=== PATIENT | female | born 1980 | race American Indian/Alaskan Native ===

== ENCOUNTER 2017-05-05 16:38 | Emergency (ER) | payer OTHER ==
[~2017-05-05] VITALS: Ht 172.7 cm; Wt 81.7 kg
--- OUTSIDE RECORDS SUMMARY | ~2017-05-05 | XMS | Clinical Summary ---
Demographics + + + | Address | [address] | | | [place] [address] | + + + | Home Phone | | + + + | Preferred Language | Unknown | + + + | Marital Status | Single | + + + | Scientology Affiliation | Unknown | + + + | Race | Unknown | + + + | Ethnic Group | Other Race | + + + Author + + + | Author | [facility] | + + + | Organization | [facility] | + + + | Address | Unknown | + + + | Phone | Unavailable | + + + Care Team Providers + +------+ + | Care Plasma Specialist Name | Role | Phone | + +------+ + PP | Unavailable | + +------+ + Source Comments KEIRY is fully live on both [facility] and [facility] In[facility] & [facility] Allergies Not on File Current Medications Not on file Active Problems Not on file Social History + +-------+ +--------+------+ | Tobacco Use | Types | Packs/Day | Years | Date | | | | | Used | | + +-------+ +--------+------+ | Never Assessed | | | | | + +-------+ +--------+------+ + + + | Sex Assigned at | Date Recorded | | | | + + + | Not on file | | + + + Plan of Treatment + + + + + | Health Maintenance | Due Date | Last Done | Comments | + + + + + | INFLUENZA VACCINE | | | | | (FLU SHOT) | 7 | | | + + + + + Results Not on filefrom Last 3 Months"
--- OUTSIDE RECORDS SUMMARY | ~2017-05-05 | XMS | Clinical Summary ---
Demographics + + + | Address | [address] | | | [place] [address] | + + + | Home Phone | | + + + | Preferred Language | Unknown | + + + | Marital Status | Single | + + + | Catholic Affiliation | Unknown | + + + | Race | Unknown | + + + | Ethnic Group | Other Race | + + + Author + + + | Author | [facility] | + + + | Organization | [facility] | + + + | Address | Unknown | + + + | Phone | Unavailable | + + + Care Team Providers + +------+ + | Care Accounting Associate Name | Role | Phone | + +------+ + PP | Unavailable | + +------+ + Source Comments KEIRY is fully live on both [facility] and [facility] InPatient.[facility] & [facility] Allergies Not on File Current Medications Not [...]
[~2017-05-05 16:38] MED LIST: ALLEGRA-D 12 HOU1 EA PO; ALPRAZOLAM0.5 MG PO; ALPRAZOLAM1 MG PO; AZITHROMYCIN250 MG PO; BACTRIM DS TAB1 EACH PO; CALCIUM CARBON500 MG PO; COMPLETE A12.5 MG/5 PO; DOCUSATE SODIU100 MG PO; DOXYCYCLINE HY100 MG PO; FOLBIC RF TABL1 EACH PO; HYDROCODON-ACE1 EA10 PO; IBUPROFEN600 MG PO; ISENTRESS400 MG PO; LACTULOSE10 GM/151 PO; LIDODERM700 MG TOP; MEDI-PATCH WIT1 EACH TOP; MILK OF MA400 MG/5 M PO; NICORETTE2 MG PO; NORCO 5-325 TA1 EACH PO; PROAIR HFA8.5 GM INH; RISPERDAL1 MG PO; ROBAXIN500 MG PO; SEROQUEL100 MG PO; SIMETHICONE80 MG PO; TERBINAFINE HC250 MG PO; TRAZODONE HCL50 MG PO; TRIAMCINOLONE A15 GM TOP; TRUVADA 200 MG1 EACH PO; TYLENOL325 MG PO; VALGANCICLOVIR450 MG PO; VENTOLIN HFA18 GM INH; VISTARIL50 MG PO; VITAMIN B-121000 MC1 PO; ZITHROMAX600 MG PO
[2017-05-05] MEDS ORDERED: XANAX0.5 MG PO (17:17)
== END 2017-05-05 17:53 | disposition home or self-care (01) ==
LOC: ED 16:38
DX: F41.0 Panic disorder [episodic paroxysmal anxiety] (principal); F32.9 Major depressive disorder, single episode, unspecified; F43.10 Post-traumatic stress disorder, unspecified; Z86.73 Personal history of transient ischemic attack (TIA), and cerebral infarction without residual deficits; F17.200 Nicotine dependence, unspecified, uncomplicated; Z79.899 Other long term (current) drug therapy
CPT/HCPCS: 96374; 99283; J2060

== ENCOUNTER 2017-12-15 13:25 | Emergency (ER) | payer OTHER ==
[~2017-12-15] VITALS: Ht 172.7 cm; Wt 77.1 kg
--- OUTSIDE RECORDS SUMMARY | ~2017-12-15 | XMS | Clinical Summary ---
Demographics + + + | Address | [address] | | | [place] [address] | + + + | Home Phone | | + + + | Preferred Language | Unknown | + + + | Marital Status | Single | + + + | Yarsanism Affiliation | Unknown | + + + | Race | Unknown | + + + | Ethnic Group | Other Race | + + + Author + + + | Author | [facility] | + + + | Organization | [facility] | + + + | Address | Unknown | + + + | Phone | Unavailable | + + + Care Team Providers + +------+ + | Care Stock Associate Name | Role | Phone | + +------+ + PP | Unavailable | + +------+ + Source Comments KEIRY is fully live on both [facility] and [facility] InPatient.[facility] & [facility] Allergies Not on File Current Medications Not [...] | | | | (FLU SHOT) | 8 | | | + + + + + Results Not on filefrom Last 3 Months Insurance + +--------+ +--------+ + + | Payer | Benefi | Subscriber | Type | Phone | Address | | | t Plan | ID | | | | | | / | | | | | | | Group | | | | | + +--------+ +--------+ + + | [place] | OHP | xxxxxxxx | Medica | [phone] | [address] [address] | | | PLUS | | id | [phone] | [place] [address] | | | OPEN | | | | | | | CARD | | | | | + +--------+ +--------+ + + + +--------+ +--------+ + + | Guarantor Name | Accoun | Relation to | Date | Phone | Billing Address | | | t Type | Patient | of | | | | | | | | | | + +--------+ +--------+ + + | ZOIE CRAIG | Person | Self | [birth year] | Home: | [address] | | | al/Fam | | 1980 | [phone] | [place] | | | [place] | | | 1 | [phone] | + +--------+ +--------+ + +"
--- OUTSIDE RECORDS SUMMARY | ~2017-12-15 | XMS | Clinical Summary ---
Demographics + + + | Address | [address] | | | [place] [address] | + + + | Home Phone | | + + + | Preferred Language | Unknown | + + + | Marital Status | Single | + + + | Hinduism Affiliation | Unknown | + + + | Race | Unknown | + + + | Ethnic Group | Unknown | + + + Author + + + | Author | [facility] | | | and [place] | + + + | Organization | [facility] | | | and [place] | + + + | Address | Unknown | + + + | Phone | Unavailable | + + + Support + + + + + | Name | Relationship | Address | Phone | + + + + + | Yas Craig | ECON | [place] | | | | | [phone] | | + + + + + Care Team Providers + +------+ + | Care Dcs Engineer Name | Role | Phone | + [...] Date | + + + | Sepsis ([facility]) | 07/25/2015 | + + + | HIV positive ([facility]) | 07/24/2015 | + + + + + | Last Assessment & Plan: - Discussed with Dr. Li at | | [facility], who has been scheduled to see [...] + + + | Poisoning by methamphetamine | 07/23/2015 | + + + + [...] Height | 174 cm (5' 8.5") | 07/22/20151734 PDT | + + + + | [...] +---------+ | [place] | MEDICA | [id number] | Medica | [phone] | | | [...] | | oscar/Andrae | | 1981 | [phone] | [place] | | | [place] | | | [phone] | [phone] | + +--------+ +--------+ + +
--- OUTSIDE RECORDS SUMMARY | ~2017-12-15 | XMS | Clinical Summary ---
Demographics + + + | Address | [address] | | | [place] [address] | + + + | Home Phone | | + + + | Preferred Language | Unknown | + + + | Marital Status | Single | + + + | Sikh Affiliation | Unknown | + + + | Race | Unknown | + + + | Ethnic Group | Unknown | + + + Author + + + | Author | [facility] | | | and [place] | + + + | Organization | [facility] | | | and [place] | + + + | Address | Unknown | + + + | Phone | Unavailable | + + + Support + + + + + | Name | Relationship | Address | Phone | + + + + + | Yas Craig | ECON | [place] | | | | | [phone] | | + + + + + Care Team Providers + +------+ + | Care Competitive Intelligence Manager Name | Role | Phone | + [...] Date | + + + | Sepsis ([facility]) | 07/25/2015 | + + + | HIV positive ([facility]) | 07/24/2015 | + + + + + | Last Assessment & Plan: - Discussed with Dr. Li at | | [facility], who has been scheduled to see [...] +---------+ | [place] | MEDICA | [id number] | Medica | [phone] | | | [...] | | oscar/Andrae | | 1981 | [phone] | [place] | | | [place] | | | [phone] | [phone] | + +--------+ +--------+ + +
--- OUTSIDE RECORDS SUMMARY | ~2017-12-15 | XMS | Clinical Summary ---
Demographics + + + | Address | [address] [place] [address] | | | [place] [address] | + + + | Home Phone | | + + + | Preferred Language | Unknown | + + + | Marital Status | Single | + + + | Cheondoism Affiliation | Unknown | + + + | Race | Unknown | + + + | Ethnic Group | Unknown | + + + Author + + + | Author | [facility] | + + + | Organization | [facility] | + + + | Address | Unknown | + + + | Phone | Unavailable | + + + Support + + +---------+ + | Name | Relationship | Address | Phone | + + +---------+ + | Salome Cao | ECON | Unknown | | + + +---------+ + | Kraen Isabel Rn | ECON | Unknown | + | | [place] | | | | + + +---------+ + | No Yu | ECON | Unknown | | + + +---------+ + Care Team Providers + +------+ + | Care Aquatic Performer Name | Role | Phone | + [...] | + + + | Drug abuse | 01/20/2015 | + + + | [...] +------+-------+ + | MEDICAID | MEDICA | [id number] | | | [address] | | | ID | | | | [place], [place] | | | [place] | | | | [address] | + +--------+ +------+-------+ + | [facility] | YELLOW | [id number] | | | | | PLANS | [place] | | | | | + +--------+ +------+-------+ + | MEDICAID | [place] | [id number] | | | [address] | | | N | | | | [place], [place] | | | [place] | | | | [address] | | | [employer] | | | | | + +--------+ [...] | | oscar/Andrae | | 1980 | [phone] | [place] | | | [place] | | | [phone]: | [address] | | | | | | | | | | | | | [phone] | | | | | | | [phone] | | + +--------+ +--------+ + +
--- OUTSIDE RECORDS SUMMARY | ~2017-12-15 | XMS | Clinical Summary ---
Demographics + + + | Address | [address] | | | [place] [address] | + + + | Home Phone | | + + + | Preferred Language | Unknown | + + + | Marital Status | Single | + + + | Jainism Affiliation | Unknown | + + + | Race | Unknown | + + + | Ethnic Group | Other Race | + + + Author + + + | Author | [facility] | + + + | Organization | [facility] | + + + | Address | Unknown | + + + | Phone | Unavailable | + + + Care Team Providers + +------+ + | Care Military Personnel Specialist Name | Role | Phone | + +------+ + PP | Unavailable | + +------+ + Source Comments KEIRY is fully live on both [facility] Ambulatory and [facility] InPatient.[facility] & [facility] Allergies Not on File Current [...] | Medica | [phone] | [address] [address] | | | PLUS | | id | [phone] | [place] [address] | | | OPEN | | | [...] | Self | [birth year] | Home: | [address] | | | al/Fam | | 1980 | [phone] | [place] | | | [place] | | | 1 | [phone] | + +--------+ +--------+ + +"
--- OUTSIDE RECORDS SUMMARY | ~2017-12-15 | XMS | Clinical Summary ---
Demographics + + + | Address | [address] [place] [address] | | | [place] [address] | + + + | Home Phone | | + + + | Preferred Language | Unknown | + + + | Marital Status | Single | + + + | Rastafari Affiliation | Unknown | + + + | Race | Unknown | + + + | Ethnic Group | Unknown | + + + Author + + + | Author | [facility] | + + + | Organization | [facility] | + + + | Address | [...] Team Providers + +------+ + | Care Handyman Name | Role | Phone | + [...] +------+-------+ + | MEDICAID | MEDICA | [id number] | | | [address] | | | ID | | | | [place], [place] | | | [place] | | | | [address] | + +--------+ +------+-------+ + | [facility] | YELLOW | [id number] | | | | | PLANS | [place] | | | | | + +--------+ +------+-------+ + | MEDICAID | [place] | [id number] | | | [address] | | | N | | | | [place], [place] | | | [place] | | | | [address] | | | MULTIPLE NEEDLE STITCHER | | | | | + +--------+ [...] | | oscar/Andrae | | 1980 | [phone] | [place] | | | [place] | | | [phone]: | [address] | | | | | | | | | | | | | [phone] | | | | | | | [phone] | | + +--------+ +--------+ + +
[~2017-12-15 13:25] MED LIST changes: +XANAX0.5 MG PO
[2017-12-15] MEDS ORDERED: BACTRIM DS TAB1 EACH PO (16:47)
== END 2017-12-15 16:59 | disposition home or self-care (01) ==
LOC: ED 13:25
DX: L73.9 Follicular disorder, unspecified (principal); B95.62 Methicillin resistant Staphylococcus aureus infection as the cause of diseases classified elsewhere; B20 Human immunodeficiency virus [HIV] disease; Z87.891 Personal history of nicotine dependence
CPT/HCPCS: 99283; Q0177

== ENCOUNTER 2018-01-30 13:04 | Emergency (ER) | payer OTHER ==
[~2018-01-30] VITALS: Ht 172.7 cm; Wt 77.1 kg
--- OUTSIDE RECORDS SUMMARY | ~2018-01-30 | XMS | Clinical Summary ---
Demographics + + + | Address | [address] | | | [place] [address] | + + + | Home Phone | | + + + | Preferred Language | Unknown | + + + | Marital Status | Single | + + + | Uatsdin Affiliation | Unknown | + + + | Race | Unknown | + + + | Ethnic Group | Unknown | + + + Author + + + | Author | [facility] | | | and [place] | + + + | Organization | [facility] | | | and [place] | + + + | Address | Unknown | + + + | Phone | Unavailable | + + + Support + + + + + | Name | Relationship | Address | Phone | + + + + + | Yas Craig | ECON | [place] | | | | | [phone] | | + + + + + Care Team Providers + +------+ + | Care Rehabilitation Attendant Name | Role | Phone | + +------+ + | No, Physician | PP | Unavailable | + +------+ + Allergies No Known Allergies Current Medications + + +--------+---------+------+------+-------+ | Prescription | Sig. | Disp. | Refills | Star | End | Statu | | | | | | t | Date | s | | | | | | Date | | | + + +--------+---------+------+------+-------+ | clonazePAM | Take 1 tablet by | 10 | 0 | 04/2 | | Activ | | (KLONOPIN) 0.5 mg | mouth 2 times daily. | tablet | | 9/20 | | e | | tablet | | | | 16 | | | + + +--------+---------+------+------+-------+ | risperiDONE | Take 1 tablet by | 10 | 0 | 04/2 | | Activ | | (RISPERDAL) 0.5 mg | mouth nightly. | tablet | | 9/20 | | e | | tablet | | | | 16 | | | + + +--------+---------+------+------+-------+ | aspirin (ASPIRIN | Take 1 tablet by | 30 | 0 | 04/2 | | Activ | | ADULT LOW STRENGTH) | mouth Daily. | tablet | | 9/20 | | e | | 81 mg chewable | | | | 16 | | | | tablet | | | | | | | + + +--------+---------+------+------+-------+ | | Take 1 tablet by | 30 | 0 | 04/2 | | Activ | | sulfamethoxazole-tri | mouth Three times a | tablet | | 9/20 | | e | | methoprim (BACTRIM | week. Indications: | | | 16 | | | | DS) 800-160 mg per | Positive HIV Test | | | | | | | tabletIndications: | | | | | | | | HIV Positive | | | | | | | + + +--------+---------+------+------+-------+ | vancomycin 1,250 | Inject 1,250 mg into | | | 04/2 | | Activ | | mg in sodium | the vein every 12 | | | 12/18 | | e | | chloride 0.9% 250 mL | hours. Indications: | | | 16 | | | | IVPBIndications: | Sepsis of Unknown | | | | | | | Sepsis of Unknown | Etiology | | | | | | | Etiology | | | | | | | + + +--------+---------+------+------+-------+ | sodium chloride | Inject 500 mg into | | | 04/2 | | Activ | | 0.9% QS Base 250 mL | the vein Daily. | | | 12/18 | | e | | with azithromycin | Indications: | | | 16 | | | | 100 mg per mL SOLR | Infection of Blood | | | | | | | 500 mgIndications: | or Tissues affecting | | | | | | | Sepsis | the Whole Body | | | | | | + + +--------+---------+------+------+-------+ | cefepime | Inject 2 g into the | | | / | | Activ | | (MAXIPIME) 2 g in | vein every 8 hours. | | | 12/18 | | e | | sodium chloride 0.9% | Indications: | | | 16 | | | | 50 mL | Infection of Blood | | | | | | | IVPBIndications: | or Tissues affecting | | | | | | | Sepsis | the Whole Body | | | | | | + + +--------+---------+------+------+-------+ Active Problems + + + | Problem | Noted Date | + + + | Sepsis ([facility]) | 07/25/2015 | + + + | HIV positive ([facility]) | 07/24/2015 | + + + + + | Last Assessment & Plan: - Discussed with Dr. Li at | | [facility], who has been scheduled to see her- Recommended HIV PCR, | | HIV genotype and CD 4 count, starting on 3 times weekly Bactrim | + + + + + | Right arm weakness | 07/24/2015 | + + + + + | Last Assessment & Plan: - Reportedly has been chronic over | | the last few months, unsteady on her feet as well- Consider brain | | MRI, although she would likely need general anesthesia | + + + + + | Acute kidney injury (HCC) | 07/24/2015 | + + + + + | Last Assessment & Plan: - Creatinine fell from 1.7 to 0.8 | | with fluids, no acute issues | + + + + + | Poisoning by methamphetamine (HCC) | 07/23/2015 | + + + + + | Last Assessment & Plan: - Hadn't slept in days | | | | - Slept the first day, more awake today | | | | - Advise cessation | + + + + + | Bipolar 1 disorder (HCC) | 07/23/2015 | + + + + + | Last Assessment & Plan: - Try to get records to determine her | | past treatment | + + + + + | Pancytopenia (HCC) | 07/23/2015 | + + + + + | Last Assessment & Plan: - Low WBC's, anemia, borderline low | | platelets- Likely due to chronic HIV infection- Stable, no sign | | of bleeding | | | |- Stable, no sign of bleeding | + + + + + | Metabolic encephalopathy | 07/23/2015 | + + + + + | Last Assessment & Plan: - Appears to be due to recent | | methamphetamine use, in addition to unclear mental health | | diagnosis (variously reported as schizophrenia, bipolar, and | | PTSD) and 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 - Has improved | | significantly since yesterday, although baseline mental status is | | reportedly poor | + + +--------+ + | Pyuria | 07/23/2015 | +--------+ + + + | Last Assessment & Plan: - Ceftriaxone started 07/22 for | | pyuria, urine cultures negative, appeared to be contaminant- Stop | | ceftriaxone today | + + Social History + +-------+ +--------+------+ | Tobacco Use | Types | Packs/Day | Years | Date | | | | | Used | | + +-------+ +--------+------+ | Current Every Day | | | | | | Smoker | | | | | + +-------+ +--------+------+ + + +---------+ + | Alcohol Use | Drinks/We | oz/Week | Comments | | | ek | | | + + +---------+ + | Yes | | | | + + +---------+ + + + + | Sex Assigned at | Date Recorded | | | | + + + | Not on file | | + + + Last Filed Vital Signs + + + + | Vital Sign | Reading | Time Taken | + + + + | Blood Pressure | 116/63 | 07/28/20151523 PDT | + + + + | Pulse | 97 | 07/28/20151523 PDT | + + + + | Temperature | 37.3 C (99.1 F) | 07/28/20151523 PDT | + + + + | Respiratory Rate | 20 | 07/28/20151523 PDT | + + + + | Oxygen Saturation | 93% | 07/28/20151523 PDT | + + + + | Inhaled Oxygen | - | - | | Concentration | | | + + + + | Weight | 69.6 kg (153 lb 7 | 07/27/2015502 PDT | | | oz) | | + + + + | Height | 174 cm (5' 8.5") | 07/22/20155 PDT | + + + + | Body Mass Index | 22.99 | 07/27/2015502 PDT | + + + + Plan of Treatment + + + + + | Health Maintenance | Due Date | Last Done | Comments | + + + + + | Vaccine: | | | | | Dtap/Tdap/Td (1 - | 9 | | | | Tdap) | | | | + + + + + | Vaccine: | | | | | Pneumococcal 19-64 | 9 | | | | Highest Risk (1 of 3 | | | | | - PCV13) | | | | + + + + + | Cervical Cancer | | | | | Screening (Pap) | 0 | | | + + + + + | Vaccine: Influenza | | | | | (#1) | 8 | | | + + + + + Results Not on filefrom Last 3 Months Insurance + +--------+ +--------+ +---------+ | Payer | Benefi | Subscriber | Type | Phone | Address | | | t Plan | ID | | | | | | / | | | | | | | Group | | | | | + +--------+ +--------+ +---------+ | [place] | MEDICA | [id number] | [place] | [phone] | | | [place] | | id | [phone] | | | | PLUS | | | | | + +--------+ +--------+ +---------+ + +--------+ +--------+ + + | Guarantor Name | Accoun | Relation to | Date | Phone | Billing Address | | | t Type | Patient | of | | | | | | | | | | + +--------+ +--------+ + + | ZOIE CRAIG | Person | Self [birth year] | Home: | [address] | | | oscar/[place]rae | | 1981 | [phone] | [place] | | | [place] | | | [phone] | [phone] | + +--------+ +--------+ + +
--- OUTSIDE RECORDS SUMMARY | ~2018-01-30 | XMS | Clinical Summary ---
Demographics + + + | Address | [address] [place] [address] | | | [place] [address] | + + + | Home Phone | | + + + | Preferred Language | Unknown | + + + | Marital Status | Single | + + + | Yazidi Affiliation | Unknown | + + + | Race | Unknown | + + + | Ethnic Group | Unknown | + + + Author + + + | Author | [facility] | + + + | Organization | [facility] | + + + | Address | Unknown | + + + | Phone | Unavailable | + + + Support + + +---------+ + | Name | Relationship | Address | Phone | + + +---------+ + | Salome Cao | ECON | Unknown | | + + +---------+ + | Karen Isabel Rn | ECON | Unknown | + | | [place] | | | | + + +---------+ + | No Yu | ECON | Unknown | | + + +---------+ + Care Team Providers + +------+ + | Care Resident Care Technician Name | Role | Phone | + +------+ + | Eladio Gaffney MD | PP | | + +------+ + Allergies No Known Allergies Current Medications + + + +---------+------+------+-------+ | Prescription | Sig. | Disp. | Refills | Star | End | Statu | | | | | | t | Date | s | | | | | | Date | | | + + + +---------+------+------+-------+ | albuterol | Inhale into the | | | | | Activ | | (PROVENTIL | lungs every 4 (four) | | | | | e | | HFA;VENTOLIN HFA) | hours as needed for | | | | | | | 108 (90 BASE) | Wheezing. | | | | | | | MCG/ACT inhaler | | | | | | | + + + +---------+------+------+-------+ | calcium carbonate | Take 2 tablets by | 30 | 0 | 07/1 | | Activ | | (TUMS) 500 MG | mouth every 6 (six) | tablet | | 2/20 | | e | | chewable tablet | hours as needed. | | | 16 | | | + + + +---------+------+------+-------+ | gabapentin | Take 1 capsule by | 90 | 11 | 07/1 | | Activ | | (NEURONTIN) 100 MG | mouth 3 (three) | capsule | | 2/20 | | e | | capsule | times daily. | | | 16 | | | + + + +---------+------+------+-------+ | traZODone | Take 1 tablet by | 30 | 0 | 07/1 | | Activ | | (DESYREL) 50 MG | mouth nightly. | tablet | | 2/20 | | e | | tablet | | | | 16 | | | + + + +---------+------+------+-------+ | QUEtiapine | Take 1 tablet by | 30 | 0 | 07/1 | | Activ | | (SEROQUEL) 100 MG | mouth nightly. | tablet | | 2/20 | | e | | tablet | | | | 16 | | | + + + +---------+------+------+-------+ | liver oil-zinc | Place 1 patch on | 56.7 g | 0 | 07/1 | | Activ | | oxide (DESITIN) 40 % | skin daily | | | 2/20 | | e | | ointment | | | | 16 | | | + + + +---------+------+------+-------+ | cyanocobalamin | Take 1 tablet by | 30 | 11 | 07/ | | Activ | | (VITAMIN B-12) 1000 | mouth daily. | tablet | | 2/20 | | e | | MCG tablet | | | | 16 | | | + + + +---------+------+------+-------+ | ferrous sulfate, | Take 1 tablet by | 90 | 11 | 09/28 | | Activ | | 65 FE, 324 (65 FE) | mouth 3 (three) | tablet | | 2/20 | | e | | MG EC tablet | times daily with | | | 16 | | | | | meals. | | | | | | + + + +---------+------+------+-------+ | potassium chloride | Take 1 tablet by | 30 | 11 | / | | Activ | | (KMOODY PETTY) 20 | mouth daily with | tablet | | 2/20 | | e | | MEQ tablet | breakfast. | | | 16 | | | + + + +---------+------+------+-------+ | | Take 1 tablet by | | | | | Activ | | HYDROcodone-acetamin | mouth 2 (two) times | | | | | e | | ophen (NORCO) 5-325 | daily. | | | | | | | MG per tablet | | | | | | | + + + +---------+------+------+-------+ | lactulose | Take 45 mLs by mouth | | | | | Activ | | (CHRONULAC) 10 | 2 (two) times | | | | | e | | GM/15ML solution | daily. | | | | | | + + + +---------+------+------+-------+ | proparacaine | Place 1 drop into | | | | | Activ | | (ALCAINE) 0.5 % | the left eye daily. | | | | | e | | ophthalmic solution | | | | | | | + + + +---------+------+------+-------+ | | Take 1 tablet by | 30 | 11 | 02/0 | 02/0 | Activ | | emtricitabine-tenofo | mouth daily. | tablet | | 1/20 | 1/20 | e | | vir DF (TRUVADA) | | | | 18 | 19 | | | 200-300 MG per | | | | | | | | tablet | | | | | | | + + + +---------+------+------+-------+ | dolutegravir | Take 1 tablet by | 30 | 11 | 02/0 | | Activ | | sodium (TIVICAY) 50 | mouth daily. | tablet | | 1/20 | | e | | MG | | | | 18 | | | | tabletIndications: | | | | | | | | Human | | | | | | | | Immunodeficiency | | | | | | | | Virus Disease | | | | | | | + + + +---------+------+------+-------+ | valACYclovir | Take 1 tablet by | 30 | 11 | 02/0 | 02/0 | Activ | | (VALTREX) 500 MG | mouth daily. | tablet | | 1/20 | 1/20 | e | | tablet | | | | 18 | 19 | | + + + +---------+------+------+-------+ Active Problems + + + | Problem | Noted Date | + + + | Fecal impaction (HCC) | 08/27/2015 | + + + | Moderate protein-calorie malnutrition (HCC) | 08/13/2015 | + + + | Left retinitis | 08/04/2015 | + + + | HIV metabolic encephalopathy (HCC) | 08/01/2015 | + + + | AIDS | 07/29/2015 | + + + | Right sided weakness | 07/29/2015 | + + + | Pneumocystis pneumonia (HCC) | 01/24/2015 | + + + | Pneumonia, organism unspecified(486) | 01/20/2015 | + + + | HIV (human immunodeficiency virus infection) | 01/20/2015 | + + + | Anemia | 01/20/2015 | + + + | Drug abuse (HCC) | 01/20/2015 | + + + | Thrush, oral | 01/20/2015 | + + + Resolved Problems + + + + | Problem | Noted | Resolved | | | Date | Date | + + + + | Neutropenia (HCC) | 08/01/19 | | | | 16 | 6 | + + + + | Blurry vision | 08/01/19 | | | | 16 | 6 | + + + + | Headache | 08/01/19 | | | | 16 | 6 | + + + + | Hyposmolality and/or hyponatremia | 01/24/20 | | | | 15 | 5 | + + + + | Hypoxemia | 01/21/20 | | | | 15 | 5 | + + + + | Chlamydia infection | 01/21/20 | | | | 15 | 5 | + + + + Immunizations + + + + | Name | Dates Previously Given | Next Due | + + + + | INFLUENZA | 01/21/2015 | | | QUADRIVALENT 36+ MO | | | | PRESERV FREE | | | + + + + | Pneumococcal | 01/21/2015 | | | Polysaccharide | | | | 23-valent | | | + + + + Family History + + +------+ + | Medical History | Relation | Name | Comments | + + +------+ + | Hepatitis C | Mother | | | + + +------+ + + +------+ + + | Relation | Name | Status | Comments | + +------+ + + | Father | | | | + +------+ + + | Mother | | Alive | | + +------+ + + Social History + +-------+ +--------+------+ | Tobacco Use | Types | Packs/Day | Years | Date | | | | | Used | | + +-------+ +--------+------+ | Former Smoker | | | | | + +-------+ +--------+------+ + + +---------+ + | Alcohol Use | Drinks/We | oz/Week | Comments | | | ek | | | + + +---------+ + | No | | | | + + +---------+ + + + + | Sex Assigned at | Date Recorded | | | | + + + | Not on file | | + + + Last Filed Vital Signs + + + + | Vital Sign | Reading | Time Taken | + + + + | Blood Pressure | 130/78 | 07/30/2017 3:06 PM PDT | + + + + | Pulse | 83 | 07/30/2017 3:06 PM PDT | + + + + | Temperature | 36.5 C (97.7 F) | 07/30/2017 3:06 PM PDT | + + + + | Respiratory Rate | 20 | 05/01/2017 11:00 AM PST | + + + + | Oxygen Saturation | 100% | 07/30/2017 3:06 PM PDT | + + + + | Inhaled Oxygen | - | - | | Concentration | | | + + + + | Weight | 88.5 kg (195 lb) | 07/30/2017 3:06 PM PDT | + + + + | Height | 172.7 cm (5' 7.99") | 07/28/2015 7:00 PM PDT | + + + + | Body Mass Index | 29.66 | 07/30/2017 3:06 PM PDT | + + + + Plan of Treatment + + + + + | Health Maintenance | Due Date | Last Done | Comments | + + + + + | Cervical Cancer | | | | | Screening (Pap) | 0 | | | + + + + + | Vaccine: Influenza | | 01/02/2017, 01/02/2016, | | | (#1) | 8 | 01/21/2015, Additional history | | | | | exists | | + + + + + | Vaccine: | | 01/31/2017, 07/07/2010 | | | Dtap/Tdap/Td (3 - | 7 | | | | Td) | | | | + + + + + | Vaccine: | Completed | 01/31/2017, 01/21/2015, | | | Pneumococcal 19-64 | | 04/02/2012 | | | Highest Risk | | | | + + + + + Results Not on filefrom Last 3 Months Insurance + +--------+ +------+-------+ + | Payer | Benefi | Subscriber | Type | Phone | Address | | | t Plan | ID | | | | | | / | | | | | | | Group | | | | | + +--------+ +------+-------+ + | MEDICAID | MEDICA | [id number] | | | [address] | | | ID | | | | [place], [place] | | | [place] | | | | [address] | + +--------+ +------+-------+ + | [facility] | YELLOW | [id number] | | | | | PLANS | [place] | | | | | + +--------+ +------+-------+ + | MEDICAID | [place] | [id number] | | | [address] | | | N | | | | [place], [place] | | | [place] | | | | [address] | | | AUTOMATION TENDER | | | | | + +--------+ +------+-------+ + + +--------+ +--------+ + + | Guarantor Name | Accoun | Relation to | Date | Phone | Billing Address | | | t Type | Patient | of | | | | | | | | | | + +--------+ +--------+ + + | ZOIE CRAIG | Person | Self [birth year] | Work: | [address] | | | oscar/Andrae | | 1980 | [phone] | [place] | | | [place] | | | [phone]: | [address] | | | | | | | | | | | | | [phone] | | | | | | | [phone] | | + +--------+ +--------+ + +
--- OUTSIDE RECORDS SUMMARY | ~2018-01-30 | XMS | Clinical Summary ---
Demographics + + + | Address | [address] | | | [place] [address] | + + + | Home Phone | | + + + | Preferred Language | Unknown | + + + | Marital Status | Single | + + + | Catholic Affiliation | Unknown | + + + | Race | Unknown | + + + | Ethnic Group | Unknown | + + + Author + + + | Author | [facility] | | | and [place] | + + + | Organization | [facility] | | | and [place] | + + + | Address | Unknown | + + + | Phone | Unavailable | + + + Support + + + + + | Name | Relationship | Address | Phone | + + + + + | Yas Craig | ECON | [place] | | | | | [phone] | | + + + + + Care Team Providers + +------+ + | Care Loan Operations Manager Name | Role | Phone | [...] + + + | Sepsis ([facility]) | 07/25/2015 | + + + | HIV positive ([facility]) | 07/24/2015 | + + + + + | Last Assessment & Plan: - Discussed with Dr. Li at | | [facility], who has been scheduled to see her- [...] +---------+ | MEDICAID [place] | MEDICA | [id number] | Medica | [phone] | | [...] | [place] | | | [phone] | [phone] | + +--------+ +--------+ + +
--- OUTSIDE RECORDS SUMMARY | ~2018-01-30 | XMS | Clinical Summary ---
Demographics + + + | Address | [address] [place] [address] | | | [place] [address] | + + + | Home Phone | | + + + | Preferred Language | Unknown | + + + | Marital Status | Single | + + + | Spiritism Affiliation | Unknown | + + + | Race | Unknown | + + + | Ethnic Group | Unknown | + + + Author + + + | Author | [facility] | + + + | Organization | [facility] | + + + | Address | [...] Team Providers + +------+ + | Care Shipping Room Helper Name | Role | Phone | + [...] +------+-------+ + | MEDICAID | MEDICA | [id number] | | | [address] | | | ID | | | | [place], [place] | | | [place] | | | | [address] | + +--------+ +------+-------+ + | [employer] [facility] | YELLOW | [id number] | | | | | PLANS | [place] | | | | | + +--------+ +------+-------+ + | MEDICAID | [place] | [id number] | | | [address] | | | N | | | | [place], [place] | | | [place] | | | | [address] | | | PHYSICAL THER | | | | | + +--------+ [...] | | oscar/Andrae | | 1980 | [phone] | [place] | | | [place] | | | [phone]: | [address] | | | | | | | | | | | | | [phone] | | | | | | | [phone] | | + +--------+ +--------+ + +
--- OUTSIDE RECORDS SUMMARY | ~2018-01-30 | XMS | Clinical Summary ---
Demographics + + + | Address | [address] | | | [place] [address] | + + + | Home Phone | | + + + | Preferred Language | Unknown | + + + | Marital Status | Single | + + + | Amish Affiliation | Unknown | + + + | Race | Unknown | + + + | Ethnic Group | Other Race | + + + Author + + + | Author | [facility] | + + + | Organization | [facility] | + + + | Address | Unknown | + + + | Phone | Unavailable | + + + Care Team Providers + +------+ + | Care Hvac/R Instructor Name | Role | Phone | + +------+ + PP | Unavailable | + +------+ + Source Comments KEIRY is fully live on both [facility] and [facility] Allergies Not on File Current Medications Not [...] | + + + + + | Influenza (Flu) | | | | | vaccination (#1) | 8 | | | + [...] | Medica | [phone] | [address] [address] | | | PLUS | | id | [phone] | [place] [address] | | | OPEN | | | [...] | + +--------+ +--------+ + + | MINTHORN,ZOIE | Person | Self | [birth year] | Home: | [address] | | | al/Fam | | 1980 | [phone] | [place] | | | [place] | | | 1 | [phone] | + +--------+ +--------+ + +"
--- OUTSIDE RECORDS SUMMARY | ~2018-01-30 | XMS | Clinical Summary ---
Demographics + + + | Address | [address] | | | [place] [address] | + + + | Home Phone | | + + + | Preferred Language | Unknown | + + + | Marital Status | Single | + + + | Episcopal Affiliation | Unknown | + + + | Race | Unknown | + + + | Ethnic Group | Other Race | + + + Author + + + | Author | [facility] | + + + | Organization | [facility] | + + + | Address | Unknown | + + + | Phone | Unavailable | + + + Care Team Providers + +------+ + | Care Shipping Receiving Clerk Name | Role | Phone | + +------+ + PP | Unavailable | + +------+ + Source Comments KEIRY is fully live on both [facility] and [facility]Patient.[facility] Allergies Not on File Current Medications [...] | Medica | [phone] | [address] [phone] | | | PLUS | | id | [phone] | [place] [address] | | | OPEN | | | [...] | Self | [birth year] | Home: | [address] | | | al/Fam | | 1980 | [phone] | [place] | | | [place] | | | 1 | [phone] | + +--------+ +--------+ + +"
[2018-01-30] MEDS ORDERED: HYDROXYZINE HCL25 MG PO (15:11)
== END 2018-01-30 15:18 | disposition home or self-care (01) ==
LOC: ED 13:04
DX: S50.02XA Contusion of left elbow, initial encounter (principal); F41.9 Anxiety disorder, unspecified; Z87.891 Personal history of nicotine dependence; Z79.899 Other long term (current) drug therapy; W19.XXXA Unspecified fall, initial encounter
CPT/HCPCS: 99283; Q0177

== ENCOUNTER 2018-04-29 22:19 | Emergency (ER) | payer OTHER ==
[~2018-04-29] VITALS: Ht 172.7 cm; Wt 90.7 kg
[~2018-04-29 22:19] MED LIST changes: +HYDROXYZINE HCL25 MG PO
== END 2018-04-29 23:01 | disposition home or self-care (01) ==
LOC: ED 22:19
DX: S50.02XA Contusion of left elbow, initial encounter (principal); F41.9 Anxiety disorder, unspecified; B20 Human immunodeficiency virus [HIV] disease; F32.9 Major depressive disorder, single episode, unspecified; D64.9 Anemia, unspecified; F43.10 Post-traumatic stress disorder, unspecified; Z87.440 Personal history of urinary (tract) infections; Z86.73 Personal history of transient ischemic attack (TIA), and cerebral infarction without residual deficits; F17.200 Nicotine dependence, unspecified, uncomplicated; Z90.89 Acquired absence of other organs; Z79.899 Other long term (current) drug therapy; Y04.0XXA Assault by unarmed brawl or fight, initial encounter
CPT/HCPCS: 99283

== ENCOUNTER 2018-05-07 15:17 | Emergency (ER) | payer OTHER ==
[~2018-05-07] VITALS: Ht 172.7 cm; Wt 90.7 kg
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
== END 2018-05-07 21:22 ==
LOC: ED 15:17
DX: Z13.30 Encounter for screening examination for mental health and behavioral disorders, unspecified (principal); F41.9 Anxiety disorder, unspecified; B20 Human immunodeficiency virus [HIV] disease; F32.9 Major depressive disorder, single episode, unspecified; D64.9 Anemia, unspecified; F43.10 Post-traumatic stress disorder, unspecified; Z86.73 Personal history of transient ischemic attack (TIA), and cerebral infarction without residual deficits; F17.200 Nicotine dependence, unspecified, uncomplicated; Z79.899 Other long term (current) drug therapy
CPT/HCPCS: 36415; 80053; 80176; 81001; 84443; 84703; 85025; 96372; 99282; G0480; J3486